=== PATIENT | male | born 1950 | race Caucasian/White ===

== ENCOUNTER 2020-08-01 21:36 | Emergency (ER) | payer OTHER ==
[~2020-08-01] VITALS: Ht 182.9 cm; Wt 81.8 kg
[2020-08-01 21:45] VITALS: Ht 182.9 cm; Wt 81.8 kg
[2020-08-01 22:22] LABS: BASOPHILS 0.8 % (0-2); EOSINOPHILS 2.1 % (0-7); HEMOGLOBIN 13.8 g/dL (13.5-17.5); IMMATURE GRANULOCYTES 0.2 % (0-5); LYMPHOCYTE ABS# 1.72 10x3/uL (1.32-3.57); LYMPHOCYTES 19.2 % (15-50); MCH 32.2 pg (26.0-34.0); MCHC 33.7 g/dL (31.0-37.0); MCV 95.6 fL (80.0-100.0); MONOCYTES 10.8 % (2-11); NEUTROPHIL ABS# 5.99 10x3/uL (1.78-5.38); NEUTROPHILS 66.9 % (40-80); PLATELET COUNT 247 10x3/uL (130-400); RBC 4.29 10x6/uL (4.20-6.10); RDW 13.1 % (11.5-14.5)
[2020-08-01 22:33] LABS: CALC OSMOLALITY 271 mosm/kg (275-300); CALCIUM 8.3 mg/dL (8.5-10.1); CARBON DIOXIDE 24.8 mmol/L (21.0-32.0); CHLORIDE - SERUM 103 mmol/L (98-107); CREATININE - SERUM 1.1 mg/dL (0.6-1.3); GLUCOSE 97 mg/dL (74-106); POTASSIUM - SERUM 3.3 mmol/L (3.5-5.1); SODIUM 136 mmol/L (136-145); UREA NITROGEN 13 mg/dL (7-18); eGFR NON AFRICAN AMERICAN 71 mL/min (90-120)
[2020-08-01 22:42] LABS: ALBUMIN 3.3 g/dL (3.4-5.0); ALKALINE PHOSPHATASE 80 U/L (30-120); ALT (SGPT) 11 U/L (10-68); BILIRUBIN - TOTAL 0.98 mg/dL (0.2-1.3); CREATINE KINASE 126 UL (21-232); PROTEIN - SERUM 7.1 g/dL (6.4-8.2); TROPONIN-I < 0.017 ng/mL (0.000-0.060)
[2020-08-01] MEDS ORDERED: KEPPRA500 MG PO (23:17)
[2020-08-02 00:01] VITALS: BP 138/77
== END 2020-08-02 00:01 | disposition home or self-care (01) ==
LOC: D.ER 21:36
PROVIDERS: Family Medicine
DX: R56.9 Unspecified convulsions (principal)